=== PATIENT | male | born 2005 | race Caucasian/White ===

== ENCOUNTER 2025-06-20 12:44 | Emergency (ER) | payer BC, SELFPAY ==
[2025-06-20] VITALS (13 sets, daily range): BP systolic 102–113; BP diastolic 52–69; PULSE 56–80; RESP 9–23; TEMP 36.4; O2SAT 98–100
--- NOTE | 2025-06-20 12:45 | RT.EKG_ITS ---
APPROVED REPORT Exam: Resting ECG Reason for Exam: Syncope, Fall Patient Location: E HR:69 bpm ECG Measurements Heart Rate 69 AXIS NE 141 P -5 QRSd 104 QRS 100 QT 399 T 32 QTc 426 Conclusion Sinus rhythm...normal P axis, V-rate 60- 99 ST elev, probable normal early repol pattern...ST elevation, age<55
--- NOTE | 2025-06-20 13:00 | DI.CT_ITS ---
Exam(s) CT HEAD WO EXAM: CT HEAD WO CLINICAL HISTORY: syncope, struck head. TECHNIQUE: Imaging Protocol: Axial computed tomography images with coronal and sagittal reformatted images were created and reviewed COMPARISON: No exams were available for comparison FINDINGS: Ventricles and Extra axial spaces: Normal in size and morphology for the patient's age. Hemorrhage: None. Cerebral parenchyma: No evidence of acute infarct or mass. Midline shift: None. Brainstem/Cerebellum: Normal. Bones: No skull or facial fractures. Visualized Paranasal sinuses:Clear. Mastoids: Clear. Soft Tissues: Unremarkable. ORBITS: Unremarkable. PITUITARY: Not enlarged. IMPRESSION: No acute intracranial process. The preliminary [facility] report was reviewed. RADIATION DOSE DELIVERED: Total DLP DATA REPOSITORY: All CT scans at this facility are submitted to the National Radiology Data Registry (NRDR) Dose Index Registry (DIR) with the [employer] ([employer]). RADIATION OPTIMIZATION: All CT scans at this facility use at least one of these dose optimization techniques: automated exposure control; mA and/or kV adjustment per patient size (includes targeted exams where dose is matched to clinical indication); or iterative reconstruction.
--- NOTE | 2025-06-20 13:00 | DI.RAD_ITS ---
Exam(s) XR CHEST 2V PA LATERAL EXAM: XR CHEST 2V PA LATERAL CLINICAL HISTORY: syncope, unexplained weight loss TECHNIQUE: 2D digital imaging was performed. Two views. COMPARISON: No exams were available for comparison FINDINGS: HEART: Normal size. Aorta: Not dilated. PULMONARY VASCULATURE: Normal. MEDIASTINUM: Unremarkable. LUNGS: Clear. PLEURAL SPACE: No pleural effusion or pneumothorax. BONE:Unremarkable for age. SOFT TISSUES: Unremarkable. IMPRESSION: No acute abnormality. The preliminary [facility] report was reviewed. DATA REPOSITORY: RADIATION DOSE DELIVERED:
--- NOTE | 2025-06-20 13:13 | W.ED.GENAD ---
Discharge Plan Disposition Patient Disposition: Home Condition: Stable Discharge Details Clinical Impression: Syncope, Blunt head trauma Primary Care Provider: Joey Mckeon ED Provider: Garcia Ferreira Home Meds and New Rx's Prescriptions: No Action No Known Home Meds Discharge Instructions Additional Instructions: Your imaging and blood work did not show any concerning findings at this time. I would recommend following up with primary care provider. make sure you are drinking plenty of fluids to stay hydrated. If you feel more ill, have severe chest pain or persistent vomiting return to the emergency department for reevaluation. Stand Alone Forms: Portal Information [facility] General Mode of arrival: ambulatory. Date/Time Provider Initiated Documentation: 06/20/25 13:01. Limitations to Documentation: no limitations. Information obtained by: patient. History of Present Illness 20 year old M presents to the emergency department with the chief complaint of syncope, described as moderate, Patient started experiencing this hour(s) (1) and it has been now resolved. No relieving factors improve symptom(s), No exacerbating factors reported . Patient notes denies chest pain and fever/chills. Patient did receive the following treatments prior to arrival, none Related Data Home Medications ?Medication ?Instructions ?Recorded ?Confirmed Unknown [No Known Home Meds] 06/20/25 06/20/25 Allergies Allergy/AdvReac Type Severity Reaction Status Date / Time No Known Allergies Allergy Unverified 06/20/25 12:59 General Stated Complaint: AMS/LOC JOLANTA: 3 Review of Systems All systems reviewed & are unremarkable except as noted in HPI and below Constitutional Constitutional: Denies chills, Denies fever(s), Denies weakness and Reports weight loss Cardiovascular Cardiovascular: Denies chest pain, Reports syncope and Denies dyspnea Respiratory Respiratory: Denies cough and Denies dyspnea Gastrointestinal Gastrointestinal: Denies abdominal pain, Denies nausea and Denies vomiting Neurologic Neurologic: Reports syncope and Denies weakness Exam Const General: no acute distress Orientation: alert HENMT Head: normal to inspection Ears: external ears normal General nose exam: external nose normal Mouth: moist mucous membranes Eyes General: appearance normal, both eyes and all related structures Visual Price: normal visual price by confrontation Alignment and Position: alignment normal Periorbital: periorbital findings normal Eyelids: eyelids normal Conjunctivae: conjunctivae normal Pupils: PERRL EOM: EOM intact bilaterally Neck Neck: normal visual inspection Resp Effort & Inspection: normal respiratory effort and able to speak in complete sentences Auscultation: clear to auscultation bilaterally Cardio Jugular venous pressure: no JVD Rate: regular rate Heart Sounds: no murmurs GI Palpation: soft and nontender Skin General skin exam: no rashes or lesions noted Neuro General: patient alert and patient oriented x3 Extrem General: normal to inspection Psych Mental Status: mental status grossly normal Course Vital Signs Vital signs: Vital Signs Temperature 36.4 C L 06/20/25 12:49 Pulse 70 06/20/25 12:49 Respiratory Rate 13 06/20/25 12:49 Blood Pressure 112/66 06/20/25 12:49 Pulse Oximetry 100 06/20/25 12:49 Temperature 36.4 C L 06/20/25 13:01 Temperature Source Oral 06/20/25 13:01 Pulse 70 06/20/25 13:01 Respiratory Rate 13 06/20/25 13:01 Blood Pressure 112/66 06/20/25 13:01 Blood Pressure Position Supine 06/20/25 13:01 Pulse Oximetry 100 06/20/25 13:01 Oxygen Delivery Method Room Air 06/20/25 13:01 Oxygen Flow Rate 0 06/20/25 13:01 Pain Level 0 06/20/25 13:01 Medical Decision Making 20-year-old male with no significant past medical history comes in with family members after he had a syncopal episode. Patient apparently started working nights a few months ago and has had 3 to 40 pound weight loss over the past few months. Patient states he has not had any other systemic symptoms such as night sweats. He says today he was eating a sandwich when he started getting lightheaded and lost consciousness falling backwards and hitting the back of his head. When he woke up he had a headache and floaters in his vision but that has resolved. He currently denies any headache, no neck pain, no chest pain or difficulty breathing, no abdominal pain or back pain. He is very satisfied with a normal gait on arrival. He has clear lung sounds, no JVD, moving all extremities equally. He has no lacerations or significant signs of trauma to the head. Given the syncope I will check a CBC CMP and troponins. Will obtain chest x-ray though my suspicion for entities such as pneumonia or cancer are low. Will obtain a CT head given he fell and hit his head and had headaches with vision floaters initially. Labs and imaging show no emergent findings. Patient is stable and feels well. Will obtain delta troponin. If this is negative we will plan for discharge, I suspect vasovagal syncope. Patient remained stable and delta troponin negative. Given reassuring workup I feel he stable for discharge and can follow-up with his PCP, return precautions given. Differential Diagnosis Differential Diagnosis: Vasovagal syncope, dehydration, anemia, electrolyte abnormality, concussion Lab Data Lab results reviewed: Yes I reviewed the patient's lab results. ECG Data Attestation: I personally reviewed and interpreted this ECG (s) as follows: Prior ECG tracings: not available for review Interpretation: Sinus rhythm, rate of 69, no STEMI PFSH All Active Problems (Updated 06/20/25 @ 14:46 by Garcia Ferreira MD) Blunt head trauma (Acute) Syncope (Chronic) Social History Smoking/Tobacco Use Status: Current every day Tobacco Type: e-cigarettes Smoking risk assessment performed?: Yes Alcohol Intake: current Alcohol Intake frequency: holidays/special occasions only Drug use: Daily Substance use type: marijuana Housing: house
[2025-06-20] MEDS: Normal Saline 1,000 ML 1000 ML IV (13:16)
[2025-06-20 13:33] LABS: Abs Immature Grans 0.01 10^3/uL (0.0-0.06); BE (Venous) 2 mmol/L (-2-3); HCO3 (Venous) 28 mmol/L (23-28); HCT 43.2 % (40.0-50.0); HGB 14.8 g/dL (13.5-17.5); Immature Grans % 0.2 %; MCH 28.7 pg (27.0-33.0); MCHC 34.3 % (32.0-36.0); MCV 84 fL (80-95); MPV 9.7 fL (8.0-11.0); O2 Sat (Venous) 45 %; Platelet Count 287 10^3/uL (130-400); RBC 5.15 10^6/uL (4.36-5.78); RDW 12.1 % (11.8-14.1); RDW-SD 37.4 fL; TCO2 (Venous) 25 mmol/L (24-29); WBC 6.65 10^3/uL (4.4-10.8); pCO2 (Venous) 52 mmHg (41-51); pO2 (Venous) 26 mmHg
[2025-06-20 14:04] LABS: Magnesium 1.8 mg/dL (1.6-2.6)
[2025-06-20 14:05] LABS: ALT 16 U/L (10-49); AST 21 U/L (<34); Albumin 5.0 g/dL (3.2-5.0); Alkaline Phosphatase 63 U/L (46-116); Anion Gap 8.5 mmol/L (3-11); BUN 13 mg/dL (9-23); Bilirubin, Total 1.0 mg/dL (0.2-1.2); CO2 27.5 mmol/L (20.0-31.0); Calcium 9.8 mg/dL (8.3-10.6); Chloride 105 mmol/L (98-107); Glucose 93 mg/dL (74-106); Potassium 3.8 mmol/L (3.5-5.1); Sodium 141 mmol/L (136-145); Total Protein 7.7 g/dL (5.7-8.2)
[2025-06-20 14:06] LABS: TSH (W/Ref FT4) 1.16 uIU/mL (0.55-4.78)
--- NOTE | 2025-06-20 14:13 | DI.[facility]_ITS ---
PROCEDURE INFORMATION: Exam: XR Chest Exam date and time: 06/20/2025 1:37 PM Age: 20 years old Clinical indication: Other: Syncope and unexplained weightloss TECHNIQUE: Imaging protocol: Radiologic exam of the chest. Views: 2 views. COMPARISON: No relevant prior studies available. FINDINGS: Lungs: Unremarkable. No consolidation. Pleural spaces: Unremarkable. No pleural effusion. No pneumothorax. Heart/Mediastinum: Unremarkable. No cardiomegaly. Bones/joints: Unremarkable. IMPRESSION: No acute findings. Dictated and Authenticated by: Daniel Morrison MD. Orderin Hanna Zelaya MD
--- NOTE | 2025-06-20 14:14 | DI.[facility]_ITS ---
PROCEDURE INFORMATION: Exam: CT Head Without Contrast Exam date and time: 06/20/2025 1:31 PM Age: 20 years old Clinical indication: Syncope and collapse TECHNIQUE: Imaging protocol: Computed tomography of the head without contrast. COMPARISON: No relevant prior studies available. FINDINGS: Brain: Normal. No hemorrhage. Unremarkable white matter. No mass effect. Cerebral ventricles: No ventriculomegaly. Paranasal sinuses: Visualized sinuses are unremarkable. No fluid levels. Mastoid air cells: Visualized mastoid air cells are well aerated. Bones: Unremarkable. No acute fracture. Soft tissues: Unremarkable. IMPRESSION: No acute intracranial abnormality. Dictated and Authenticated by: Daniel Morrison MD. Orderin Hanna Zelaya MD
[2025-06-20 14:20] LABS: Troponin I < 3 ng/L (<54)
[2025-06-20] MEDS: Acetaminophen 500 MG TAB 1000 MG PO (14:20)
[2025-06-20 15:04] LABS: Troponin I < 3 ng/L (<54)
[2025-06-20 15:17] LABS: Glucose Negative (Negative)
[2025-06-20 15:49] LABS: Cannabinoids THC Positive (Negative)
== END 2025-06-20 15:28 | disposition home or self-care (01) ==
PROVIDERS: Emergency Provider Emergency Medicine; PCP Nurse Practitioner Family
DX: R55 Syncope and collapse (principal); S09.90XA Unspecified injury of head, initial encounter; W19.XXXA Unspecified fall, initial encounter
CPT/HCPCS: 99284; 99285; 36415; 36416; 82962; 80053; 80307; 82805; 93005; 96360; 70450; 71046; 80320; 81003; 83735; 84443; 84484; 85025; 93010